=== PATIENT | male | born 1960 | race African-American/Black ===

== ENCOUNTER → 2019-02-11 | Outpatient (CLI) | payer OTHER ==
--- NOTE | ~2019-02-11 | P ---
[facility] [place] [address] PROCEDURE REPORT Name: BO LUNA Room #: REG SIMA Avina#: [id number] Admission: 02/11/19 ������������������ Attend Phys: Burak Sih Discharge: ������������������ Date of : 60 Report #: [id number] THIS REPORT FOR: //name// CC: Burak Mcnair DATE OF SERVICE: 02/11/2019 PROCEDURE PERFORMED: Upper endoscopy with biopsies. HISTORY OF PRESENT ILLNESS: The patient is a 58-year-old male with a history of gastroesophageal reflux disease, currently taking an antacid, but he is not sure of what type. Denies any heartburn. Denies any dysphagia. No previous history of endoscopy. DESCRIPTION OF PROCEDURE: The risks and benefits of the procedure were explained to the patient, those risks including but not limited to bleeding, perforation, the risk of sedation. He understood these risks and gave informed consent. Sedation was given using propofol per anesthesia. Next, using a standard Olympus upper endoscope, the scope was placed in the patient's mouth and advanced under direct vision to the esophagus, stomach and into the second portion of the duodenum. The upper and mid esophagus was normal in appearance. In the distal esophagus at the GE junction, mild grade A erosive esophagitis was noted. No evidence of bleeding. Overall, there was a mild gastritis in the gastric fundus and body. Biopsies were obtained to rule out H. pylori. The gastric antrum was normal. The pylorus was normal and patent. The duodenal bulb, first and second portion were all normal. The scope was then withdrawn and the procedure terminated. The patient tolerated the procedure well. IMPRESSION: 1. Mild grade A erosive esophagitis. 2. Mild gastritis. 3. Otherwise, normal upper endoscopy. RECOMMENDATIONS: 1. Await biopsy results. 2. Would recommend daily PPI therapy if the patient is not already on this medication. Thank you for allowing me to participate in the care. ��������������������������������������������� ���������������������������������������� By: ��������������������������������������������� [id number] Burak Jarrett MD /nt
--- NOTE | ~2019-02-11 | P ---
[facility] [place] [address] PROCEDURE REPORT Name: BO LUNA Room #: REG SIMA Avina#: [id number] Admission: 02/11/19 ������������������ Attend Phys: Burak Shi Discharge: ������������������ Date of : 60 Report #: [id number] THIS REPORT FOR: //name// CC: Burak Mcnair DATE OF SERVICE: 02/11/2019 PROCEDURE PERFORMED: Colonoscopy with biopsies. HISTORY OF PRESENT ILLNESS: The patient is a 58-year-old male who presents today for a routine screening colonoscopy. No previous history of colonoscopy and he denies any symptoms. No family history of colon cancer. DESCRIPTION OF PROCEDURE: The risks and benefits of the procedure were explained to the patient, those risks including but not limited to bleeding, perforation and the risk of sedation. He understood these risks and gave informed consent. Sedation was given using propofol per anesthesia. Next, a digital rectal exam was initially performed, which was normal. Next, using a standard Olympus colonoscope, the scope was placed in the patient's anus and advanced under direct vision to the cecum. The overall prep was good. The cecum and ileocecal valve were normal in appearance. In the ascending colon, a 4-mm sessile polyp was noted. This was removed with cold forceps, otherwise normal. The transverse and descending colon were normal. In the sigmoid colon, two 3-4 mm sessile polyps were noted, both removed with cold forceps. The rectal mucosa was normal. On retroflexion, small nonbleeding internal hemorrhoids were noted. The scope was then withdrawn and the procedure terminated. The patient tolerated the procedure well. IMPRESSION: 1. Three small colonic polyps. 2. Small internal hemorrhoids. 3. Otherwise, normal colonoscopy. RECOMMENDATIONS: 1. Await biopsy results. 2. If polyps are hyperplastic, repeat in 10 years; if adenomatous polyp, repeat in 5 years. Thank you for allowing me to participate in his care. ��������������������������������������������� ���������������������������������������� By: ��������������������������������������������� [id number] Burak Jarrett MD /nt
--- NOTE | 2019-02-15 11:06 | PATH ---
[facility] [place] [address] PATHOLOGY RPT PROCEDURE Name: AUGUST LUNA Room #: REG Emma MJhon.#: [id number] ������������������ Admission: 02/11/19 ������������������ Date of : 60 Discharge: Report #: [id number] Path Case #: [id number] [facility] Accession Number: [id number] . 01 Material submitted: . PART A: stomach - GASTRITIS R/O H. PYLORI PART B: colon - ASCENDING COLON POLYP. Modifiers: ascending PART C: colon - SIGMOID COLON POLYP X2. Modifiers: sigmoid . 01 Clinical history: . None provided. . 02 Diagnosis: A. Gastric mucosa, gastritis rule out H. pylori, endoscopic biopsy: - Mild chronic inflammation. - Negative for intestinal metaplasia or atrophy. - Negative for Helicobacter pylori (properly-controlled immunohistochemical stain performed). . B. Polyp, ascending colon polyp, endoscopic biopsy: - Tubular adenoma. - Negative for high grade dysplasia. . C. Polyp x2, sigmoid colon polyp, endoscopic biopsy: - All fragments showing changes compatible with hyperplastic polyps. - Negative for dysplasia. . (IUV:mml; 02/14/2019) QLM/02/14/2019 . 02 Electronically signed: . Symone Juan MD, Pathologist NPI- [id number] . 01 Gross description: . A. Received in formalin labeled "August Montes, gastritis" is a 0.7 x 0.4 x 0.2 cm aggregate of childs-brown mucosa fragments. The specimen is submitted in A1. . B. Received in formalin labeled "August Montes, ascending colon polyp" is a 0.6 x 0.5 x 0.1 cm aggregate of childs-brown mucosa fragments. The specimen is submitted in B1. . C. Received in formalin labeled "August Montes, sigmoid polyp" is a 0.6 x 0.5 x 0.2 cm aggregate of childs-brown mucosa fragments. The specimen is submitted in C1. ([facility] [place]; 02/13/2019) [facility]/[address] [address] PATHOLOGY RPT PROCEDURE Name: SEASHAYYAUGUST Room #: REG SIMA Avina#: [id number] ������������������ Admission: 02/11/19 ������������������ Date of : 60 Discharge: Report #: [id number] Path Case #: [id number] . 02 Pathologist provided ICD-10: K29.50, D12.2, K63.5 . 02 CPT . 010939, 480665, [id number], D48888 Specimen Comment: A courtesy copy of this report has been sent to Specimen Comment: [phone], . Specimen Comment: Report sent to / DR BELLO Performed at: [address] [facility], [place], [place] [id number] MD Leno Cat MD Phone: [phone] Performed at: [address] [id number] MD Symone Juan MD Phone: [phone]
== END | disposition home or self-care (01) ==
LOC: GI 07:33
DX: Z12.11 Encounter for screening for malignant neoplasm of colon (principal); D12.2 Benign neoplasm of ascending colon; K63.5 Polyp of colon; K29.50 Unspecified chronic gastritis without bleeding; K64.8 Other hemorrhoids; K22.10 Ulcer of esophagus without bleeding; Z98.890 Other specified postprocedural states; Z79.899 Other long term (current) drug therapy
CPT/HCPCS: 62110; 62900